=== PATIENT | female | born 1965 | race Caucasian/White ===

== ENCOUNTER 2017-07-04 01:00 | Emergency (ER) | payer MEDICARE, MEDICAID ==
[2017-07-04] MEDS ORDERED: FENTANYL 100MCG/2ML SOL IV ONE (01:09)
[2017-07-04 01:43] LABS: BASOPHILS % (AUTO) 1 % (0-3); EOSINOPHILS % (AUTO) 1 % (0-9); HEMATOCRIT 38 % (35-47); MEAN CORPUSCULAR VOLUME 91 fL (81-99); MONOCYTES % (AUTO) 7.5 % (0-12); NEUTROPHILS % (AUTO) 69.1 % (37-80)
[2017-07-04] MEDS ORDERED: FENTANYL 100MCG/2ML SOL ONE (01:45)
[2017-07-04 01:57] LABS: ALBUMIN 3.7 gm/dl (3.4-5.0); CALCIUM 8.1 mg/dl (8.5-10.1); POTASSIUM 3.2 mMol/L (3.5-5.1)
[2017-07-04] MEDS ORDERED: SODIUM CHLORIDE 0.9% 1000ML 1,000 ML IV ONE (02:01)
[2017-07-04] MEDS ORDERED: SODIUM CHLORIDE 0.9% FLUSH 10 ML SOL IV PRN (02:01)
[2017-07-04] MEDS ORDERED: APAP/OXYCODONE 325/5 TAB PO ONE (02:41)
[2017-07-04] MEDS ORDERED: APAP/OXYCODONE 325/5 TAB ONE (02:48)
[2017-07-04] MEDS ORDERED: BACITRACIN 500 U/GM OIN TOP ONE ×2 (02:57→02:58)
[2017-07-04 06:39] VITALS: RESP 14
[2017-07-04 07:05] VITALS: TEMP 98.2
[2017-07-04 07:16] VITALS: O2SAT 98
[2017-07-04 08:01] VITALS: BP 104/68; PULSE 99
== END 2017-07-04 07:50 | disposition home or self-care (01) | DRG 563 ==
LOC: ED 01:00
DX: S42.351A Displaced comminuted fracture of shaft of humerus, right arm, initial encounter for closed fracture (principal); W10.9XXA Fall (on) (from) unspecified stairs and steps, initial encounter
CPT/HCPCS: 36415; 70450; 70486; 72125; 73030; 80053; 80307; 82962; 85025; 99285; G0390; J3010